=== PATIENT | male | born 1935 | race Caucasian/White ===

== ENCOUNTER 2022-09-25 16:51 | Emergency (ER) | payer MEDICARE, MEDICAID ==
[~2022-09-25] VITALS: Ht 175.3 cm; Wt 72.7 kg
[2022-09-25] MEDS ORDERED: HYDROcodone/acetaminophen 5mg/325mg tablet PO ONE (20:05)
[2022-09-25 20:34] LABS: BASOPHILS # (AUTO) 0.1 X10'3 (0-0.2); EOSINOPHILS # (AUTO) 0.2 X10'3 (0-0.9); EOSINOPHILS % (AUTO) 3.7 % (0-6); HEMATOCRIT 38.5 % (42.0-52.0); HEMOGLOBIN 12.8 g/dl (14.0-17.9); LYMPHOCYTES # (AUTO) 1.5 X10'3 (1.1-4.8); LYMPHOCYTES % (AUTO) 21.6 % (21-51); MEAN CORPUSCULAR HEMOGLOBIN 30.2 PG (27.0-31.0); MEAN CORPUSCULAR HGB CONC 33.1 g/dL (33.0-36.5); MEAN CORPUSCULAR VOLUME 91.2 FL (78-98); MEAN PLATELET VOLUME 6.8 FL (7.4-10.4); MONOCYTES % (AUTO) 14.2 % (2-12); NEUTROPHILS % (AUTO) 59.5 % (42-75); PLATELET COUNT 208 X10'3 (140-440); RED BLOOD COUNT 4.23 X10'6 (4.70-6.10); RED CELL DISTRIBUTION WIDTH 14.9 % (11.5-14.5); WHITE BLOOD COUNT 6.8 X10'3 (4.5-11.0)
[2022-09-25] MEDS ORDERED: acetaminophen 325mg tablet PO ONE (20:40)
[2022-09-25 20:47] LABS: ALANINE AMINOTRANSFERASE 88 U/L (12-78); ALBUMIN 3.3 G/DL (3.4-5.0); ALBUMIN/GLOBULIN RATIO 0.8 (1.1-1.5); ALKALINE PHOSPHATASE 112 IU/L (46-116); ANION GAP 7 (8-16); ASPARTATE AMINO TRANSFERASE 67 U/L (10-37); BILIRUBIN,TOTAL 0.9 MG/DL (0.1-1.0); BLOOD UREA NITROGEN 23 MG/DL (7-18); BUN/CREATININE RATIO 21.5 (10.0-20.0); CALCIUM 9.4 MG/DL (8.5-10.1); CHLORIDE 104 MMOL/L (99-107); CREATININE 1.07 MG/DL (0.60-1.10); GLUCOSE 107 MG/DL (70-104); POTASSIUM 4.1 MMOL/L (3.5-5.1); SODIUM 138 MMOL/L (135-145); TOTAL CARBON DIOXIDE 26.8 MMOL/L (24-32); TOTAL PROTEIN 7.6 G/DL (6.4-8.2); eGFR 66 ML/MIN
[2022-09-25] MEDS ORDERED: LIDOcaine 1% (10mg/ml) 2ml vial ONE (22:48)
[2022-09-26 00:02] VITALS: BP 128/70
[2022-09-26 00:12] LABS: GLUCOSE,SYNOVIAL FLUID 96 MG/DL; TOTAL PROTEIN,SYNOVIAL FLUID 4.6 GM/DL
[2022-09-26 01:15] LABS: APPEARANCE,SYNOVIAL FLUID HAZY; COLOR,SYNOVIAL FLUID YELLOW
[2022-09-26 01:16] LABS: SYN WBC 625 /CU MM (0-200)
[2022-09-26 01:17] LABS: CRYSTAL ID, SYN FLD OTHER; LYMPHOCYTES,SYNOVIAL FLUID 9 % (0-75); MONOCYTES,SYNOVIAL FLUID 17 % (0-0); NEUTROPHILS,SYNOVIAL FLUID 74 % (0-25); SYN RBC 738 /CU MM (0); SYNOVIAL FLUID CRYSTALS QT NO CRYSTALS SEEN
== END 2022-09-26 01:58 | disposition home or self-care (01) ==
LOC: ER 16:52
DX: M17.11 Unilateral primary osteoarthritis, right knee (principal); M00.9 Pyogenic arthritis, unspecified; Z88.6 Allergy status to analgesic agent
CPT/HCPCS: 20610; 73564; 80053; 82945; 84157; 85025; 87015; 87070; 87075; 89051; 89060; 99284; J3490; A6449